=== PATIENT | female | born 1950 | race Caucasian/White ===

== ENCOUNTER → 2017-11-11 | Outpatient (CLI) | payer MEDICARE | END | disposition home or self-care (01) | LOC: CFH 13:29 | PROVIDERS: ATTEND Licensed Practical Nurse | DX: Z12.31 Encounter for screening mammogram for malignant neoplasm of breast (principal) | CPT/HCPCS: G0202 ==

== ENCOUNTER → 2020-06-21 | Outpatient (CLI) | payer MEDICARE ==
[~2020-06-21] MED LIST: ALBU18HF INH; ATOR10TA9 PO; CHOL10003 PO; LOSA25TA25 PO; LYSI500T25 PO
[2020-06-21 14:18] LABS: CHLORIDE 105 mmol/L (98-107)
[2020-06-21 14:19] LABS: ALANINE AMINOTRANSFERASE 22 U/L (12-78); ALBUMIN 4.1 g/dL (3.4-5.0); ANION GAP 6 mmol/L (5-15); CREATININE 0.85 mg/dL (0.55-1.02)
[2020-06-21 14:20] LABS: ALKALINE PHOSPHATASE 114 U/L (45-117); BILIRUBIN,TOTAL 0.8 mg/dL (0.2-1.0); TOTAL PROTEIN 7.8 g/dL (6.4-8.2)
== END | disposition home or self-care (01) ==
LOC: STAR 12:45
PROVIDERS: ATTEND Obstetrics & Gynecology Female Pelvic Medicine and Reconstructive Surgery
DX: Z01.818 Encounter for other preprocedural examination (principal); N81.10 Cystocele, unspecified
CPT/HCPCS: 36415; 80053; 93005

== ENCOUNTER 2020-07-10 05:35 | Day surgery (SDC) | payer MEDICARE ==
[~2020-07-10] VITALS: Ht 162.6 cm; Wt 51.7 kg
[2020-07-10 06:07] VITALS: BP 168/94
[2020-07-10] MEDS ORDERED: LACTATED RINGERS 1,000 ML IV ONE (06:09)
[2020-07-10] MEDS ORDERED: CHLORHEXIDINE 15 ML UDC MM STA (06:09)
[2020-07-10] MEDS ORDERED: CHLORHEXIDINE 15 ML UDC ONE (06:14)
[2020-07-10 06:33] VITALS: BP 142/88
[2020-07-10] MEDS ORDERED: MIDAZOLAM 1 MG/ML, 2ML ONE (07:02)
[2020-07-10] MEDS ORDERED: FENTANYL PF 250 MCG/5ML ONE (07:03)
[2020-07-10] MEDS ORDERED: PROPOFOL 10 MG/ML, 20ML ONE (07:03)
[2020-07-10] MEDS ORDERED: BUPIVACAINE/PF 0.25% ONE (07:10)
[2020-07-10] MEDS ORDERED: GENTAMICIN 80 MG/2 ML ONE (07:11)
[2020-07-10] MEDS ORDERED: INDIGO CARMINE 0.8%, 5ML ONE (07:11)
[2020-07-10] MEDS ORDERED: EPINEPHRINE 1 MG/ML, 1ML ONE (07:11)
[2020-07-10] MEDS ORDERED: BACITRACIN 50,000 UNIT ONE (07:12)
[2020-07-10] MEDS ORDERED: VANCOMYCIN 1,000 MG ONE (07:15)
[2020-07-10] MEDS ORDERED: ROCURONIUM 10MG/ML,5ML ONE (07:28)
[2020-07-10] MEDS ORDERED: ONDANSETRON 2MG/ML, 2ML ONE ×2 (07:28)
[2020-07-10] MEDS ORDERED: LIDOCAINE-MPF 2% ,5ML ONE (07:28)
[2020-07-10] MEDS ORDERED: DEXAMETHASONE 4 MG/ML, 1ML ONE ×2 (07:29)
[2020-07-10] MEDS ORDERED: CEFAZOLIN 1,000 MG ONE ×2 (07:29)
[2020-07-10] MEDS ORDERED: FENTANYL PF 100 MCG/2ML IV PRN (07:30)
[2020-07-10] MEDS ORDERED: LABETALOL 5MG/ML, 20ML IV PRN (07:30)
[2020-07-10] MEDS ORDERED: HYDROmorphone 1 MG/ML, 1ML INJ IVPush PRN (07:30)
[2020-07-10] MEDS ORDERED: hydrALAzine 20 MG/ML, 1ML IV PRN (07:30)
[2020-07-10] MEDS ORDERED: ACETAMINOPHEN 325 MG TABLET PO PRN (07:30)
[2020-07-10] MEDS ORDERED: MEPERIDINE/PF 25MG/0.5ML IVPush PRN (07:30)
[2020-07-10] MEDS ORDERED: OXYcodone 5 MG/5 ML ORAL.SOL UDC PO PRN (07:30)
[2020-07-10] MEDS ORDERED: DIAZEPAM 5 MG/ML, 2ML IVPush PRN (07:30)
[2020-07-10] MEDS ORDERED: PROMETHAZINE 25 MG/ML, 1ML IVPush PRN (07:30)
[2020-07-10] MEDS ORDERED: ONDANSETRON 2MG/ML, 2ML IVPush PRN ×2 (07:30→10:30)
[2020-07-10] MEDS ORDERED: DIPHENHYDRAMINE 50 MG/ML, 1ML IVPush PRN (07:30)
[2020-07-10] MEDS ORDERED: NEOSTIGMINE 1 MG/ML, 10ML ONE (09:22)
[2020-07-10] MEDS ORDERED: GLYCOPYRROLATE 0.2MG/1ML, 5ML ONE (09:22)
[2020-07-10] MEDS ORDERED: KETOROLAC 30 MG/1 ML ONE (09:30)
[2020-07-10] MEDS ORDERED: LACTATED RINGERS 1,000 ML IV SCH (10:16)
[2020-07-10] MEDS ORDERED: FENTANYL PF 100 MCG/2ML ONE (10:27)
[2020-07-10] MEDS ORDERED: IBUPROFEN 600 MG TABLET PO PRN (10:30)
[2020-07-10] MEDS ORDERED: LACTATED RINGERS 500 ML IVBOLUS ONE (10:30)
[2020-07-10] MEDS ORDERED: PROMETHAZINE 12.5 MG SUPP PR ONE (10:30)
[2020-07-10] MEDS ORDERED: HYDROcodone/APAP 5/325 TABLET PO PRN (10:30)
[2020-07-10] MEDS ORDERED: OXYcodone 5 MG/5 ML ORAL.SOL UDC ONE (10:50)
[2020-07-10] MEDS ORDERED: ACETAMINOPHEN 650 MG/20.3 ML UDC ONE (10:50)
== END 2020-07-10 13:05 | disposition home or self-care (01) ==
LOC: OUT 05:35
PROVIDERS: ATTEND Obstetrics & Gynecology Female Pelvic Medicine and Reconstructive Surgery
DX: N81.4 Uterovaginal prolapse, unspecified (principal); Z11.59 Encounter for screening for other viral diseases; N39.3 Stress incontinence (female) (male); I10 Essential (primary) hypertension; E78.5 Hyperlipidemia, unspecified; J45.909 Unspecified asthma, uncomplicated; M19.90 Unspecified osteoarthritis, unspecified site; Z79.899 Other long term (current) drug therapy; Z88.2 Allergy status to sulfonamides
CPT/HCPCS: 36415; 57240; 57288; 57425; 58542; 87635; 88305; C1771; C1781; J0171; J0690; J1100; J1580; J1885; J2250; J2405; J2704; J2710; J3010; J3370; J3490; J7120